=== PATIENT | male | born 1995 | race Caucasian/White ===

== ENCOUNTER 2017-02-10 19:53 | Emergency (ER) | payer OTHER ==
[~2017-02-10] VITALS: Ht 172.7 cm; Wt 99.0 kg
[2017-02-10 19:54] VITALS: BP 167/91; PULSE 98; RESP 16; TEMP 98.9; O2SAT 97
--- NOTE | 2017-02-10 20:25 | PD ---
HPI Chief Complaint: Injury Time Seen by Provider: 20:06 Travel History International Travel<30 days: No Contact w/Intl Traveler<30days: No Traveled to known affect area: No History of Present Illness HPI 21-year-old male here for evaluation of left shoulder pain after an injury that occurred at around 6:00 PM. 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 He was wearing a helmet at that time. He denies loss of consciousness. He felt immediate pain in his left shoulder, and the pain has been persistent, worse with movement and palpation, 4 out of 10, described as an ache. He denies neck pain. He is having slight numbness sensation in his left hand. He is right-hand dominant. No other injuries. [facility] Past Medical History Medical History: Denies Significant Hx Diminished Hearing: No Tetanus Vaccination: < 5 Years Past Surgical History Abdominal Surgery: Yes (HERNIA REPAIR) Social History Alcohol Use: Yes (OCC) Tobacco Use: No Substance Use: No Allergies-Medications (Allergen,Severity, Reaction): Coded Allergies: Penicillins (Verified Allergy, Mild, Hives, 02/10/17) Review of Systems Except as stated in HPI: all other systems reviewed are Neg Physical Exam Narrative GENERAL: Well-developed, well-nourished, comfortable, no apparent distress. SKIN: Focused skin assessment warm/dry. No lacerations, abrasions, or ecchymosis. HEAD: Atraumatic. Normocephalic. EYES: Pupils equal and round. No scleral icterus. No injection or drainage. ENT: Mucous membranes pink and moist. NECK: Trachea midline. No JVD. No midline cervical spinous step-off or tenderness. CARDIOVASCULAR: Regular rate and rhythm. Bilateral distal radial pulses are brisk and equal. RESPIRATORY: No accessory muscle use. Clear to auscultation. Breath sounds equal bilaterally. GASTROINTESTINAL: Abdomen soft, non-tender, nondistended. MUSCULOSKELETAL: Left shoulder and clavicle without obvious deformity with tenderness along the left clavicle and anterior shoulder, with limited range of motion secondary to pain. No midline cervical spine step-off or tenderness. The rest of his joints and extremities are without deformity, without tenderness , with normal range of motion. NEUROLOGICAL: Awake and alert. No obvious cranial nerve deficits. Motor grossly within normal limits. Normal speech. Normal sensation in entire left upper extremity. PSYCHIATRIC: Appropriate mood and affect; insight and judgment normal. Data Data Last Documented VS Vital Signs Date Time Temp Pulse Resp B/P (MAP) Pulse Ox O2 Delivery O2 Flow Rate FiO2 02/10/17 19:54 98.9 98 16 167/91 (116) 97 Room Air Orders Orders Shoulder, Complete (>2vws) (02/10/17 ) Clavicle (02/10/17 ) Spine, Cervical Compl([id number]) (02/10/17 ) Acetamin-Hydrocod 325-5 Mg ([place] 5-325 (02/10/17 20:30) Support Splint (02/10/17 21:20) MDM Medical Decision Making Medical Screen Exam Complete: Yes Emergency Medical Condition: Yes Differential Diagnosis Left shoulder contusion versus proximal humerus fracture versus dislocation, left clavicle fracture, left AC joint separation Narrative Course Left shoulder, left clavicle, and cervical spine x-rays show no acute disease, no acute fractures. The patient was made aware of x-ray findings. His left upper extremity is neurovascularly intact. All compartments are supple and left upper extremity. He likely has a shoulder contusion. I will give him a shoulder sling, however I advised that he take his arm out of a couple of hours and range his shoulder to prevent a frozen shoulder. 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 Tylenol/ibuprofen for pain. RICE. He was informed on when to return to the emergency department. He verbalizes understanding and agreement with plan. Diagnosis Primary Impression: Contusion of left shoulder Qualified Codes: S40.012A - Contusion of left shoulder, initial encounter Referrals: Rhett Davila MD 1 week Primary Care Physician 3 days Additional Instructions: Follow-up with a primary care physician this week. Follow-up with orthopedic surgeon Dr. Davila or and orthopedist of your choice this week. Tylenol/ibuprofen for pain. Return to the emergency department for worsening symptoms or any other concerns. Disposition: 01 DISCHARGE HOME Condition: Stable Rene Vo MD Feb 10, 2017 20:25
[2017-02-10] MEDS ORDERED: ACETAMINOPHEN/HYDROcodone 325 MG/5 MG TAB PO ONE (20:30)
--- NOTE | 2017-02-10 21:05 | RADRPT ---
EXAM DATE/TIME: 02/10/2017 20:43 [facility] COMPARISON: No previous studies available for comparison. INDICATIONS : Left shoulder pain from trauma sustained playing hockey. MEDICAL HISTORY : A/C joint seperation SURGICAL HISTORY : None. ENCOUNTER: Initial ACUITY: 1 day PAIN SCORE: 10/10 LOCATION: Left shoulder FINDINGS: Two view examination of the left clavicle demonstrates no evidence of fracture. The sternoclavicular joints and acromioclavicular joints are maintained. Bony mineralization is normal. CONCLUSION: No acute disease. Kem Muhammad MD on February 10, 2017 at 21:02 Board Certified Radiologist. This report was verified electronically.
--- NOTE | 2017-02-10 21:05 | RADRPT ---
EXAM DATE/TIME: 02/10/2017 20:38 [facility] COMPARISON: No previous studies available for comparison. INDICATIONS : Left shoulder injury playing hockey. MEDICAL HISTORY : None. SURGICAL HISTORY : None. ENCOUNTER: Initial ACUITY: 1 day PAIN SCORE: 0/10 LOCATION: neck FINDINGS: Five view examination was performed. There is normal alignment and curvature of the vertebral bodies down to the level of C7. No evidence of fracture or subluxation. Vertebral body height is normal. The disc spaces are maintained. The prevertebral soft tissues are of normal thickness. The atlanto -axial articulation is intact. The bony neural foramen are patent bilaterally. CONCLUSION: Unremarkable examination of the cervical spine. Kem Muhammad MD on February 10, 2017 at 21:02 Board Certified Radiologist. This report was verified electronically.
--- NOTE | 2017-02-10 21:05 | RADRPT ---
EXAM DATE/TIME: 02/10/2017 20:45 [facility] COMPARISON: No previous studies available for comparison. INDICATIONS : Left shoulder pain from trauma sustained playing hockey. MEDICAL HISTORY : A/C joint seperation. SURGICAL HISTORY : None. ENCOUNTER: Initial ACUITY: 1 day PAIN SCORE: 10/10 LOCATION: Left Shoulder TECH NOTE: Patient states he had a A/C seperation three years ago.SANDRA CURTIS MR#[id number] :96 Exa m date/desc:February 10, 2017SHOULDER LEFT COMPLETE (>2VWS) FINDINGS: Multiple view examination of the left shoulder demonstrates no evidence of fracture or dislocation. The glenohumeral and acromioclavicular joints are maintained. There is normal range of motion betwee n internal and external rotation. Bony mineralization is normal. CONCLUSION: No acute disease. Kem Muhammad MD on February 10, 2017 at 21:03 Board Certified Radiologist. This report was verified electronically.
== END 2017-02-10 21:32 | disposition home or self-care (01) ==
LOC: NEPD 19:53
DX: S40.012A Contusion of left shoulder, initial encounter (principal); Z88.0 Allergy status to penicillin; W22.8XXA Striking against or struck by other objects, initial encounter; Y93.22 Activity, ice hockey
CPT/HCPCS: 72050; 73000; 73030; 99284